=== PATIENT | female | born 1930 | race Caucasian/White ===

== ENCOUNTER 2018-12-07 01:24 | Emergency (ER) | payer MEDICARE, BC ==
[~2018-12-07] VITALS: Ht 157.5 cm; Wt 89.8 kg
[~2018-12-07 01:24] MED LIST: CHOL10002 PO; CYAN-19 PO; DILT180C66 PO; HCTZ25T PO; TRAM100C3 PO; VIT1CAPS27 PO
[2018-12-07] MEDS ORDERED: DESMOPRESSIN IV ONE (02:35)
[2018-12-07] MEDS ORDERED: NORMAL SALINE IV ONE (02:35)
[2018-12-07] MEDS ORDERED: tranexamic acid 100mg/ml inj. IV ONE (02:35)
[2018-12-07] MEDS ORDERED: tranexamic acid inj. 900 MG in normal saline 100ml IV soln 100 ML IV ONE (02:45)
[2018-12-07 03:06] VITALS: BP 180/82
[2018-12-07 03:28] LABS: BASOPHILS % (AUTO) 0.5 % (0-1); EOSINOPHILS # (AUTO) 0.2 X10'3 (0-0.9); EOSINOPHILS % (AUTO) 2.3 % (0-6); HEMATOCRIT 39.7 % (35.0-45.0); HEMOGLOBIN 13.4 g/dl (12.0-16.0); LYMPHOCYTES % (AUTO) 13.3 % (21-51); MEAN CORPUSCULAR HEMOGLOBIN 30.1 PG (27.0-31.0); MEAN CORPUSCULAR HGB CONC 33.7 g/dL (33.0-36.5); MEAN CORPUSCULAR VOLUME 89.4 FL (78-98); MEAN PLATELET VOLUME 7.7 FL (7.4-10.4); MONOCYTES # (AUTO) 0.6 X10'3 (0-0.9); MONOCYTES % (AUTO) 8.3 % (2-12); NEUTROPHILS # (AUTO) 5.9 X10'3 (1.8-7.7); NEUTROPHILS % (AUTO) 75.6 % (42-75); PLATELET COUNT 251 X10'3 (140-440); RED BLOOD COUNT 4.44 X10'6 (4.20-5.60); RED CELL DISTRIBUTION WIDTH 13.7 % (11.5-14.5); WHITE BLOOD COUNT 7.8 X10'3 (4.5-11.0)
[2018-12-07 03:35] LABS: ALANINE AMINOTRANSFERASE 20 U/L (12-78); ALBUMIN 3.3 G/DL (3.4-5.0); ALBUMIN/GLOBULIN RATIO 1.1 (1.1-1.5); ALKALINE PHOSPHATASE 98 IU/L (46-116); ANION GAP 11 (8-16); ASPARTATE AMINO TRANSFERASE 20 U/L (10-37); BILIRUBIN,TOTAL 0.2 MG/DL (0.1-1.0); BLOOD UREA NITROGEN 18 MG/DL (7-18); BUN/CREATININE RATIO 20.7 (6.6-38.0); CALCIUM 8.9 MG/DL (8.5-10.1); CHLORIDE 106 MMOL/L (99-107); CREATININE 0.87 MG/DL (0.40-0.90); GLUCOSE 128 MG/DL (70-104); SODIUM 140 MMOL/L (135-145); TOTAL CARBON DIOXIDE 23.5 MMOL/L (24-32); TOTAL PROTEIN 6.2 G/DL (6.4-8.2); eGFR 61 ML/MIN
[2018-12-07 03:36] LABS: POTASSIUM 4.2 MMOL/L (3.5-5.1)
[2018-12-07 03:37] LABS: PARTIAL THROMBOPLASTIN TIME 27 SECONDS (22-32); PROTHROMBIN TIME 10.2 SECONDS (9.0-12.0)
== END 2018-12-07 03:52 | disposition short-term general hospital (02) ==
LOC: ER 01:24
DX: S06.5X0A Traumatic subdural hemorrhage without loss of consciousness, initial encounter (principal); I10 Essential (primary) hypertension; M19.90 Unspecified osteoarthritis, unspecified site; G89.29 Other chronic pain; Z86.73 Personal history of transient ischemic attack (TIA), and cerebral infarction without residual deficits; Z90.49 Acquired absence of other specified parts of digestive tract; Z90.710 Acquired absence of both cervix and uterus; Z98.890 Other specified postprocedural states; Z79.899 Other long term (current) drug therapy; W18.49XA Other slipping, tripping and stumbling without falling, initial encounter; Y93.89 Activity, other specified; Y92.89 Other specified places as the place of occurrence of the external cause; Y99.9 Unspecified external cause status
CPT/HCPCS: 36415; 70450; 80053; 85025; 85610; 85730; 86885; 86900; 86901; 96365; 96368; 99291; J2597; J7030

== ENCOUNTER 2020-06-26 13:10 | Outpatient (CLI) | payer MEDICARE, BC ==
[~2020-06-26 13:10] MED LIST changes: -CYAN-19 PO; +CYAN100019 PO
== END 2020-06-26 23:59 | disposition home or self-care (01) ==
LOC: WOUND CARE 13:10
PROVIDERS: ATTEND Nurse Practitioner Family
DX: S31.829A Unspecified open wound of left buttock, initial encounter (principal); S31.819A Unspecified open wound of right buttock, initial encounter; L98.411 Non-pressure chronic ulcer of buttock limited to breakdown of skin; L98.9 Disorder of the skin and subcutaneous tissue, unspecified; I10 Essential (primary) hypertension; M19.90 Unspecified osteoarthritis, unspecified site; E66.9 Obesity, unspecified; H35.30 Unspecified macular degeneration; K72.10 Chronic hepatic failure without coma; Z85.828 Personal history of other malignant neoplasm of skin; Z90.710 Acquired absence of both cervix and uterus; Z68.36 Body mass index [BMI] 36.0-36.9, adult; X58.XXXA Exposure to other specified factors, initial encounter; Y93.89 Activity, other specified; Y92.89 Other specified places as the place of occurrence of the external cause; Y99.8 Other external cause status
CPT/HCPCS: G0463